=== PATIENT | male | born 1965 | race Caucasian/White ===

== ENCOUNTER → 2018-04-18 | Outpatient (CLI) | payer OTHER ==
[~2018-04-18] MED LIST: ASPI81CH PO; Bystolic10 MG PO; CYCL10 PO; DOXY100 PO; ETOD500 PO; GABA300 PO; HYDACE5 PO; Hytrin1 MG PO; Naprosyn500 MG PO; Norco 5-325 Ta1 EACH PO; Prednisone20 MG PO
[2018-04-18 16:07] LABS: Source, Urine Clean Catch
[2018-04-18 17:53] LABS: Bilirubin, Urine Neg (Neg); Blood, Urine 1+ (Neg); Glucose Qualitative, Urine Neg (Neg); Ketones, Urine Neg (Neg); Leukocyte Esterase, Urine Neg (Neg); Nitrite, Urine Neg (Neg); Protein, Urine 1+ (Neg); Urobilinogen, Urine NORM (Normal)
[2018-04-18 18:07] LABS: Appearance, Urine Hazy (Clear); Color, Urine Yellow (P-Yellow)
[2018-04-18 18:08] LABS: Squamous Epithelial Cells Rare /hpf (Few)
[2018-04-18 18:09] LABS: Bacteria Rare /hpf; Red Blood Cells, Urine Not Seen /hpf (0-2); White Blood Cells, Urine 0-2 /hpf (0-5)
== END ==
LOC: LAB SHORT 16:05 → LAB 16:05
PROVIDERS: Nurse Practitioner Family
DX: R10.9 Unspecified abdominal pain (principal)
CPT/HCPCS: 81001

== ENCOUNTER → 2019-02-11 | Outpatient (CLI) | payer OTHER ==
[2019-02-13 07:18] LABS: Stool Occult Bld Immuno 1 Negative (NEGATIVE)
== END ==
LOC: LAB UCHC 15:15
PROVIDERS: Nurse Practitioner Family
DX: Z12.11 Encounter for screening for malignant neoplasm of colon (principal)
CPT/HCPCS: G0328

== ENCOUNTER → 2020-12-15 | Outpatient (CLI) | payer OTHER ==
[2020-12-21 05:07] LABS: COTININE Negative ng/mL (Cutoff=300)
== END ==
LOC: LAB SHORT 12:52 → LAB 12:52 → LAB FUT 12-14 11:50
PROVIDERS: Radiology Diagnostic Radiology
DX: Z72.0 Tobacco use (principal); Z88.6 Allergy status to analgesic agent

== ENCOUNTER 2021-02-20 14:39 | Emergency (ER) | payer OTHER ==
[~2021-02-20] VITALS: Ht 180.3 cm; Wt 77.1 kg
[2021-02-20 15:28] LABS: BASOPHILS ABSOLUTE AUTO 0.08 K/mm3 (0.00-0.23); BASOPHILS PERCENT AUTO 1 % (0-2); EOSINOPHILS ABSOLUTE AUTO 0.12 K/mm3 (0.00-0.68); EOSINOPHILS PERCENT AUTO 2 % (0-6); Hematocrit 45.4 % (37.0-53.0); Hemoglobin 15.4 g/dL (13.5-17.5); IMMATURE GRAN ABSOLUTE AUTO 0.01 K/mm3 (0.00-0.10); IMMATURE GRAN PERCENT AUTO 0 % (0-1); LYMPHOCYTES ABSOLUTE AUTO 2.28 K/mm3 (0.84-5.20); LYMPHOCYTES PERCENT AUTO 33 % (21-46); MONOCYTES ABSOLUTE AUTO 0.59 K/mm3 (0.16-1.47); MONOCYTES PERCENT AUTO 8 % (4-13); Mean Corpuscular HGB 31.4 pg (26.0-34.0); Mean Corpuscular HGB Conc 33.9 g/dL (31.5-36.5); Mean Corpuscular Volume 93 fL (80-100); Mean Platelet Volume 11.2 fL (9.1-12.4); NEUTROPHILS ABSOLUTE AUTO 3.91 K/mm3 (1.96-9.15); NEUTROPHILS PERCENT AUTO 56 % (41-73); Platelet Count 208 K/mm3 (150-400); RDW Coefficient Variation 12.3 % (11.7-14.2); RDW Standard Deviation 42.1 fL (35.1-46.3); White Blood Cell Count 6.99 K/mm3 (4.00-11.30)
[2021-02-20 15:43] LABS: Alanine Aminotransfer (ALT/SGP 24 U/L (12-78); Albumin/Globulin Ratio 1.1 (0.8-1.8); Alk Phos 90 U/L (50-136); Anion Gap 4 mmol/L (6-16); Aspartate Aminotrans (AST/SGOT 13 U/L (12-37); Bilirubin, Total 0.6 mg/dL (0.1-1.0); Blood Urea Nitrogen 18 mg/dL (8-24); CO2, Blood 25 mmol/L (21-32); Calcium, Blood 9.9 mg/dL (8.5-10.1); Chloride, Blood 108 mmol/L (98-108); Creatinine, Blood 0.95 mg/dL (0.60-1.20); Globulin, Blood 3.5 g/dL (2.2-4.0); Glomerular Filtration Rate >60 (60-); Glucose, Blood 110 mg/dL (70-99); Potassium, Blood 4.1 mmol/L (3.5-5.5); Sodium, Blood 137 mmol/L (136-145); Total Protein, Blood 7.5 g/dL (6.4-8.2)
[2021-02-20] MEDS ORDERED: PRAV20 PO (19:00)
[2021-02-20] MEDS ORDERED: Ventolin/Prove6.7 GM INH (19:00)
[2021-02-20] MEDS ORDERED: BACLOFEN10 M4 PO (19:00)
[2021-02-20] MEDS ORDERED: ACET500 (19:01)
== END 2021-02-20 20:47 | disposition home or self-care (01) ==
LOC: ER 14:39
PROVIDERS: Physician Assistant
DX: I71.4 Abdominal aortic aneurysm, without rupture (principal); I10 Essential (primary) hypertension; E78.00 Pure hypercholesterolemia, unspecified; F17.210 Nicotine dependence, cigarettes, uncomplicated; Z88.6 Allergy status to analgesic agent; Z79.82 Long term (current) use of aspirin; Z79.899 Other long term (current) drug therapy
CPT/HCPCS: 74177; 80053; 85025; 93005; 93010; J2270; J2405; Q9967

== ENCOUNTER 2021-02-24 09:56 | Day surgery (SDC) | payer OTHER ==
[~2021-02-24] VITALS: Ht 180.3 cm; Wt 77.0 kg
[~2021-02-24 09:56] MED LIST changes: +ACET500; +BACLOFEN10 M4 PO; +PRAV20 PO; +Ventolin/Prove6.7 GM INH
--- NOTE | 2021-02-24 17:24 | NUR ---
PT SITTING UP EATING DINNER. BILATERAL GROIN ACCESS SITES ARE STABLE WITH NO BLEEDING, OOZING OR HEMATOMA NOTED. ATTEMPTED TO RELEASE AIR FROM TR BAND ON RRAD BUT PT BLED FROM SITE. WILL ATTEMPT TO RELEASE AIR AGAIN IN ABOUT 15MINS. VSS. PT DENIES ANY CONCERNS OR NEEDS AT THIS TIME. WILL CONTINUE TO MONITOR.
--- NOTE | 2021-02-24 17:40 | NUR ---
2mL AIR RELEASED FROM TR BAND. NO BLEEDING, OOZING OR HEMATOMA NOTED. BILATERAL GROIN SITES STABLE WITH NO BLEEDING, OOZING OR HEMATOMA. WILL CONTINUE TO MONITOR.
--- NOTE | 2021-02-24 18:03 | NUR ---
ALL AIR RELEASED FROM TR BAND. NO BLEEDING, OOZING OR HEMATOMA NOTED. BILATERAL GROIN ACCESS SITES REMAIN STABLE WITH NO BLEEDING, OOZING OR HEMATOMA NOTED. VSS, WILL CONTINUE TO MONITOR.
--- NOTE | 2021-02-24 19:06 | NUR ---
PT AMBULATED TO RESTROOM AND DRESSED SELF WITH NO COMPLICATIONS. BILATERAL GROIN SITE ARE STABLE WITH NO BLEEDING, OOZING OR HEMATOMA NOTED. TR BAND WAS REMOVED FROM RRAD SITE, SITE CLEANED AND CLOTH DOT DRESSING APPLIED. NO BLEEDING, OOZING OR HEMATOMA NOTED. PT STATES HIS UNDERSTANDING OF DC AND SITE CARE INSTRUCTIONS AND DENIES ANY QUESTIONS OR CONCERNS. IV DCD WITH CATH INTACT. VSS. PT TAKEN TO EXIT VIA WHEELCHAIR BY SECOND RN WHERE RIDE WAS WAITING.
== END 2021-02-24 19:00 | disposition home or self-care (01) ==
LOC: MHTC 09:56
DX: I70.223 Atherosclerosis of native arteries of extremities with rest pain, bilateral legs (principal); Z88.6 Allergy status to analgesic agent
CPT/HCPCS: 76937; 99152; 99153; C1725; C1760; C1769; C1887; C1894; J1644; J2250; J3010; J7030; J7050; Q9967

== ENCOUNTER → 2021-04-08 | Outpatient (CLI) | payer OTHER ==
[2021-04-12 11:07] LABS: COTININE Negative ng/mL (Cutoff=300)
== END | disposition home or self-care (01) ==
LOC: LAB SHORT 08:54
PROVIDERS: Radiology Diagnostic Radiology
DX: Z01.812 Encounter for preprocedural laboratory examination (principal); Z87.891 Personal history of nicotine dependence

== ENCOUNTER 2021-04-28 10:26 | Day surgery (SDC) | payer OTHER ==
--- NOTE | 2021-04-28 16:00 | NUR ---
ASSUMED CARE OF PATIENT. RIGHT AND LEFT GROIN SITES SOFT AND NONTENDER. NO HEMATOMA, NO BLEEDING. DR GLASGOW HERE TO SPEAK TO PATIENT.
[2021-04-28] MEDS ORDERED: CLOP75 PO (16:25)
--- NOTE | 2021-04-28 18:20 | NUR ---
APTIENT UP TO RSEROOM AND SITTING IN CHAIR. RIGHT AND LEFT GROIN SITES WITHOUT HEMATOMA OR BLEEDING. SOFT AND NONTENDER. PATIENT DRESSED BY SELF. PATIENT VEBALIZED UNDERSTANDING OF DISCHARGE INSTRUCTIONS AND PRECAUTIONS. IV SITE DCED WITH CATHETER INTACT. PATIENT TAKEN VIA WHEEL CAHIR BY LENORA RODRIGUEZ TO WAITING CAR WITH FRIEND DRIVING
== END 2021-04-28 23:14 | disposition home or self-care (01) ==
LOC: MHTC 10:26
DX: I71.4 Abdominal aortic aneurysm, without rupture (principal); I74.5 Embolism and thrombosis of iliac artery; I70.213 Atherosclerosis of native arteries of extremities with intermittent claudication, bilateral legs; I10 Essential (primary) hypertension; J44.9 Chronic obstructive pulmonary disease, unspecified; Z87.891 Personal history of nicotine dependence; Z88.6 Allergy status to analgesic agent
CPT/HCPCS: 76937; 99152; 99153; C1725; C1760; C1769; C1874; C1887; C1894; J1644; J2250; J3010; J7030; J7050; Q9967

== ENCOUNTER 2021-07-04 17:54 | Emergency (ER) | payer OTHER ==
[~2021-07-04] VITALS: Ht 180.3 cm; Wt 99.8 kg
[~2021-07-04 17:54] MED LIST changes: +CLOP75 PO
[2021-07-04 18:55] LABS: BASOPHILS ABSOLUTE AUTO 0.08 K/mm3 (0.00-0.23); BASOPHILS PERCENT AUTO 1 % (0-2); EOSINOPHILS ABSOLUTE AUTO 0.13 K/mm3 (0.00-0.68); EOSINOPHILS PERCENT AUTO 2 % (0-6); Hematocrit 43.3 % (37.0-53.0); Hemoglobin 14.5 g/dL (13.5-17.5); IMMATURE GRAN ABSOLUTE AUTO 0.01 K/mm3 (0.00-0.10); IMMATURE GRAN PERCENT AUTO 0 % (0-1); LYMPHOCYTES ABSOLUTE AUTO 1.94 K/mm3 (0.84-5.20); LYMPHOCYTES PERCENT AUTO 32 % (21-46); MONOCYTES ABSOLUTE AUTO 0.35 K/mm3 (0.16-1.47); MONOCYTES PERCENT AUTO 6 % (4-13); Mean Corpuscular HGB 30.8 pg (26.0-34.0); Mean Corpuscular HGB Conc 33.5 g/dL (31.5-36.5); Mean Corpuscular Volume 92 fL (80-100); Mean Platelet Volume 11.3 fL (9.1-12.4); NEUTROPHILS ABSOLUTE AUTO 3.62 K/mm3 (1.96-9.15); NEUTROPHILS PERCENT AUTO 59 % (41-73); Platelet Count 191 K/mm3 (150-400); RDW Coefficient Variation 12.6 % (11.7-14.2); RDW Standard Deviation 42.5 fL (35.1-46.3); Red Blood Cell Count 4.71 M/mm3 (4.30-5.90); White Blood Cell Count 6.13 K/mm3 (4.00-11.30)
[2021-07-04 19:15] LABS: Albumin, Blood 3.9 g/dL (3.4-5.0); Albumin/Globulin Ratio 1.1 (0.8-1.8); Bilirubin, Total 0.4 mg/dL (0.1-1.0); Bun/Creatinine Ratio 20.4 (12.0-20.0); Calcium, Blood 10.1 mg/dL (8.5-10.1); Creatinine, Blood 1.08 mg/dL (0.60-1.20); Globulin, Blood 3.6 g/dL (2.2-4.0); Total Protein, Blood 7.5 g/dL (6.4-8.2)
[2021-07-04 20:38] LABS: Source, Urine Clean Catch
[2021-07-04 20:40] LABS: Bilirubin, Urine Neg (Neg); Blood, Urine 1+ (Neg); Glucose Qualitative, Urine 3+ (Neg); Ketones, Urine Neg (Neg); Leukocyte Esterase, Urine Neg (Neg); Nitrite, Urine Neg (Neg); Protein, Urine 1+ (Neg); Urobilinogen, Urine NORM (Normal)
[2021-07-04 20:45] LABS: Appearance, Urine Cloudy (Clear); Color, Urine Pale Yellow (P-Yellow)
[2021-07-04 20:46] LABS: Amorphous Heavy (0-Heavy); Squamous Epithelial Cells Rare /hpf (Few)
[2021-07-04 20:47] LABS: Bacteria Mod /hpf
== END 2021-07-04 21:40 | disposition home or self-care (01) ==
LOC: ER 17:54
PROVIDERS: Student in an Organized Health Care Education/Training Program
DX: R10.2 Pelvic and perineal pain (principal); I10 Essential (primary) hypertension; E78.00 Pure hypercholesterolemia, unspecified; Z88.6 Allergy status to analgesic agent; Z79.82 Long term (current) use of aspirin; Z79.899 Other long term (current) drug therapy; Z87.891 Personal history of nicotine dependence
CPT/HCPCS: 36415; 74177; 80053; 81001; 85025

== ENCOUNTER 2022-03-02 12:00 | Emergency (ER) | payer OTHER ==
[~2022-03-02] VITALS: Ht 180.3 cm; Wt 92.1 kg
[2022-03-02 12:50] LABS: BASOPHILS ABSOLUTE AUTO 0.13 K/mm3 (0.00-0.23); BASOPHILS PERCENT AUTO 1 % (0-2); EOSINOPHILS ABSOLUTE AUTO 0.18 K/mm3 (0.00-0.68); EOSINOPHILS PERCENT AUTO 2 % (0-6); Hematocrit 49.6 % (37.0-53.0); Hemoglobin 17.4 g/dL (13.5-17.5); IMMATURE GRAN ABSOLUTE AUTO 0.02 K/mm3 (0.00-0.10); IMMATURE GRAN PERCENT AUTO 0 % (0-1); LYMPHOCYTES ABSOLUTE AUTO 3.26 K/mm3 (0.84-5.20); LYMPHOCYTES PERCENT AUTO 34 % (21-46); MONOCYTES ABSOLUTE AUTO 0.68 K/mm3 (0.16-1.47); MONOCYTES PERCENT AUTO 7 % (4-13); Mean Corpuscular HGB 31.6 pg (26.0-34.0); Mean Corpuscular HGB Conc 35.1 g/dL (31.5-36.5); Mean Corpuscular Volume 90 fL (80-100); Mean Platelet Volume 11.1 fL (9.1-12.4); NEUTROPHILS ABSOLUTE AUTO 5.37 K/mm3 (1.96-9.15); NEUTROPHILS PERCENT AUTO 56 % (41-73); Platelet Count 333 K/mm3 (150-400); RDW Coefficient Variation 12.4 % (11.7-14.2); RDW Standard Deviation 40.9 fL (35.1-46.3); Red Blood Cell Count 5.51 M/mm3 (4.30-5.90); White Blood Cell Count 9.64 K/mm3 (4.00-11.30)
[2022-03-02 13:16] LABS: Albumin, Blood 4.1 g/dL (3.4-5.0); Albumin/Globulin Ratio 1.1 (0.8-1.8); Bilirubin, Total 0.8 mg/dL (0.1-1.0); Bun/Creatinine Ratio 15.5 (12.0-20.0); Calcium, Blood 10.3 mg/dL (8.5-10.1); Creatinine, Blood 0.97 mg/dL (0.60-1.20); Globulin, Blood 3.9 g/dL (2.2-4.0); Potassium, Blood 4.4 mmol/L (3.5-5.5)
[2022-03-02 18:02] LABS: International Normalized Ratio 1.13; Prothrombin Time Results 11.8 Sec (9.7-11.5)
[2022-03-02 18:21] LABS: Influenza A, PCR NEGATIVE (NEGATIVE); Influenza B, PCR NEGATIVE (NEGATIVE); Resp Syncytial Virus, PCR NEGATIVE (NEGATIVE); SARS-Cov-2 (COVID-19) PCR, MMC NEGATIVE (NEGATIVE)
== END 2022-03-02 19:12 | disposition short-term general hospital (02) ==
LOC: ER 12:00
PROVIDERS: Physician Assistant; Student in an Organized Health Care Education/Training Program
DX: I71.40 Abdominal aortic aneurysm, without rupture, unspecified (principal); I10 Essential (primary) hypertension; Z79.899 Other long term (current) drug therapy; Z79.82 Long term (current) use of aspirin; Z88.6 Allergy status to analgesic agent; Z87.891 Personal history of nicotine dependence
CPT/HCPCS: 0241U; 36415; 71046; 74177; 80053; 83690; 84484; 85025; 85610; 86850; 86900; 86901; 93005; 93010; J2270; J2405; J7050; Q9967

== ENCOUNTER → 2022-09-14 | Outpatient (CLI) | payer OTHER ==
[~2022-09-14] MED LIST changes: -ACET500; +ALBU90OI INH; +ATOR40TA PO; +Acetaminophen650 M1 PO; +HYDR1TAB94 PO; +LEVO750 PO; +LIDO700A20 TOP; +LISI5 PO; +VISBIOME 112.51 EACH PO; -Ventolin/Prove6.7 GM INH
== END ==
LOC: LAB 12:00 → LAB SHORT 12:00
DX: R10.2 Pelvic and perineal pain (principal)
CPT/HCPCS: 87086

== ENCOUNTER → 2023-03-06 | Outpatient (CLI) | payer OTHER ==
[2023-03-15 12:23] LABS: Stool Occult Bld Immuno 1 Negative (NEGATIVE)
== END ==
LOC: LAB SHORT 11:20 → LAB 11:20
PROVIDERS: Registered Nurse
DX: Z12.11 Encounter for screening for malignant neoplasm of colon (principal)
CPT/HCPCS: G0328